=== PATIENT | male | born 1940 | race Caucasian/White ===

== ENCOUNTER 2018-03-24 00:09 | Emergency (ER) | payer MEDICARE ==
--- NOTE | 2018-03-24 00:58 | EDM.PDOC ---
ED HPI GENERAL MEDICAL PROBLEM - General Chief Complaint: ENT Problem Stated Complaint: BLOODY NOSE Time Seen by Provider: 03/24/18 00:53 Source of Information: Reports: Patient History Limitations: Reports: No Limitations - History of Present Illness INITIAL COMMENTS - FREE TEXT/NARRATIVE: This patient takes Coumadin and today began having some nosebleeds. His INR was elevated to approximately 5 with his home INR monitor. He's wondering what he needs to do. He's not having bleeding from any other sources. denies pain Pain Score (Numeric/FACES): 0 - Related Data Allergies Allergy/AdvReac Type Severity Reaction Status Date / Time No Known Allergies Allergy Verified 03/24/18 00:25 Past Medical History HEENT History: Reports: Cataract, Impaired Vision Cardiovascular History: Reports: Afib, Pacemaker Genitourinary History: Reports: Prostate Disorder Neurological History: Reports: Seizure Hematologic History: Reports: Anticoagulation Therapy - Infectious Disease History Infectious Disease History: Reports: Chicken Pox - Past Surgical History HEENT Surgical History: Reports: Cataract Surgery, Tonsillectomy Cardiovascular Surgical History: Reports: Other (See Below) Other Cardiovascular Surgeries/Procedures: x2 tricusbid valve replacement GI Surgical History: Reports: Appendectomy, Colonoscopy, Hernia, Inguinal, Hernia Repair/Other Musculoskeletal Surgical History: Reports: Knee Replacement, Other (See Below) Other Musculoskeletal Surgeries/Procedures:: right knee replacement Social & Family History - Tobacco Use Smoking Status *Q: Never Smoker - Caffeine Use Caffeine Use: Reports: Coffee, Soda - Recreational Drug Use Recreational Drug Use: No ED ROS ENT - Review of Systems Review Of Systems: ROS reveals no pertinent complaints other than HPI. ED EXAM, ENT - Physical Exam Exam: See Below Exam Limited By: No Limitations General Appearance: Alert, WD/WN, No Apparent Distress, Other (Presently not having any nosebleed) Psychiatric: Normal Affect Skin: Warm, Dry, Intact. No: Ecchymosis, Petechiae Course - Vital Signs Last Recorded V/S: Last Vital Signs Temp 36.6 C 03/24/18 00:33 Pulse 83 03/24/18 00:33 Resp 16 03/24/18 00:33 BP 137/78 03/24/18 00:33 Pulse Ox 97 03/24/18 00:33 Departure - Departure Time of Disposition: 00:57 Disposition: Home, Self-Care 01 Condition: Fair Clinical Impression: Elevated INR (international normalized ratio) due to prior anticoagulant medication ingestion - Discharge Information Referrals: Luis Loza MD [Primary Care Provider] - Additional Instructions: An elevated INR of 5 is very common in Coumadin therapy. Just skip your dose tonight and tomorrow night. Then check your INR at home on Sunday morning and call the Coumadin clinic. The clinic will decide when to restart the Coumadin and whether or not to adjust the dose
== END 2018-03-24 01:06 | disposition home or self-care (01) ==
LOC: JP.ED 00:09
DX: R79.1 Abnormal coagulation profile (principal); T45.515A Adverse effect of anticoagulants, initial encounter; I48.91 Unspecified atrial fibrillation; Z95.0 Presence of cardiac pacemaker; Z79.01 Long term (current) use of anticoagulants
CPT/HCPCS: 99283